=== PATIENT | male | born 1975 | race Caucasian/White ===

== ENCOUNTER 2019-08-20 11:22 | Inpatient (IN) | payer BC, OTHER ==
[~2019-08-20] VITALS: Ht 185.4 cm; Wt 107.0 kg
[2019-08-20 11:31] VITALS: BP 139/88
[2019-08-20 12:10] LABS: ANION GAP 11 mmol/L (7-16); BUN 20 mg/dL (7-18); CALCIUM 8.4 mg/dL (8.5-10.1); CHLORIDE 106 mmol/L (98-107); CO2 22 mmol/L (21-32); CREATININE 1.2 mg/dL (0.7-1.3); GLUCOSE 103 mg/dL (74-106); SODIUM 139 mmol/L (136-145)
[2019-08-20 12:11] LABS: ABSOLUTE NEUTROPHILS 7.1 thou/uL (1.4-8.2); BASOPHILS 0.5 % (0.0-2.0); EOSINOPHILS 0.2 % (0.0-3.0); HEMOGLOBIN 15.4 gm/dL (14.0-18.0); MCH 29.1 pg (26.0-34.0); MCHC 33.4 g/dL (28.0-37.0); MCV 87.1 fL (80.0-100.0); MONOCYTES 5.8 % (1.0-8.0); POLYS 76.5 % (36.0-66.0); RBC 5.28 mil/uL (4.50-6.00); RDW 14.7 % (10.5-14.5); WBC 9.3 thou/uL (4.0-11.0)
[2019-08-20 12:21] LABS: ALBUMIN 3.7 g/dL (3.4-5.0); DIRECT BILIRUBIN 0.5 mg/dL (<0.1-0.2); SGOT 60 U/L (15-37); SGPT 110 U/L (30-65); TOTAL BILIRUBIN 1.6 mg/dL (<0.1-1.0); TROPONIN-I <0.06 ng/mL (<0.06)
[2019-08-20 12:42] LABS: PLATELET COUNT 203 thou/uL (150-400); PLATELET ESTIMATE NORMAL
[2019-08-20 12:45] LABS: URINE BLOOD TRACE (Negative); URINE CLARITY CLEAR; URINE COLOR YELLOW; URINE GLUCOSE-RANDOM* NEGATIVE (Negative); URINE KETONES NEGATIVE (Negative); URINE LEUKOCYTES-REFLEX NEGATIVE (Negative); URINE NITRITE-REFLEX NEGATIVE (Negative); URINE PROTEIN (DIPSTICK) 1+ (Negative); URINE SPECIFIC GRAVITY >= 1.030 (1.005-1.035); URINE UROBILINOGEN 0.2 E.U./dl (0.2-1.0)
[2019-08-20 12:49] LABS: ICTOTEST (BILI CONFIRMATORY) Negative (Negative); URINE BILIRUBIN NEGATIVE (Negative)
[2019-08-20 13:29] LABS: BACTERIA-REFLEX 1-9 Few /HPF (None Seen); CASTS None Seen /LPF (None Seen); CRYSTALS None Seen /LPF (None Seen); SQUAMOUS 0-3 Few /LPF (0-3); URINE RBC 0-2 Rare /HPF (0-2); URINE WBC-REFLEX None Seen /HPF (0-5)
[2019-08-20 14:48] VITALS: BP 114/79
--- NOTE | 2019-08-20 16:20 | NUR ---
Dietary called to order night meal tray for patient.
[2019-08-20 16:23] VITALS: BP 112/76
--- NOTE | 2019-08-20 17:30 | NUR ---
Patient provided with meal tray at this time
[2019-08-20 21:31] VITALS: BP 110/83
[2019-08-20 22:11] VITALS: BP 124/87
[2019-08-21 00:15] VITALS: BP 105/75
[2019-08-21 04:40] VITALS: BP 118/87
--- NOTE | 2019-08-21 07:36 | NUR ---
PT WAS PLEASANT THROUGHOUT THE SHIFT, VERY COOPERATIVE AND INVOLVED IN CARE. PT HAD NO PRIOR MEDICAL HISTORY OR MEDICATION HISTORY. DR SOLITARIO WAS REACHED OUT VIA PHONE ANSWERING SERVICE TO ADD MEDICATIONS ONBOARD. PT STATED THAT SINCE ADMISSION PT HAS BEEN HAVING LESS SOA. WEIGHT HAS BEEN TAKEN, PT HAD LOOSE STOOL COUPLE TIMES THIS SHIFT. PT IS UP AD AVRIL, COMFORTABLE. HOB WAS ELEVATED. FLUID RESTRICTION MAINTAINED. PT IS FULLY COMPREHENDABLE AND IS INVOLVED WITH THE COURSE OF CARE.
[2019-08-21 07:39] LABS: ANION GAP 11 mmol/L (7-16); BUN 15 mg/dL (7-18); CALCIUM 8.4 mg/dL (8.5-10.1); CHLORIDE 106 mmol/L (98-107); CHOLESTEROL 104 mg/dL (<200); CO2 23 mmol/L (21-32); CREATININE 1.3 mg/dL (0.7-1.3); GLUCOSE 92 mg/dL (74-106); HDL CHOLESTEROL 31 mg/dL (>40); LDL CHOLESTEROL 57 mg/dL (<100); POTASSIUM 3.8 mmol/L (3.5-5.1); SODIUM 140 mmol/L (136-145); TC:HDL 3.4 Ratio (Not establshd); TRIGLYCERIDE 83 mg/dL (<150); VLDL 17 mg/dL (<40)
--- NOTE | 2019-08-21 08:05 | EKG ---
[facility] [address] [place] [address] ELECTROCARDIOGRAM REPORT Name: KRISTOFER SUAREZ Room #: 356-P ADM IN M.R.#: [id number] Admission: 08/20/19 Attend Phys: Ernesto Baez MD Discharge: Date of : 79 Report #: [id number] THIS REPORT FOR: cc: FAM - Family physician unknown FAM - Family physician unknown Juan Hills MD [facility] ~ THIS REPORT FOR: //name// [facility] ED Test Date: 2019-08-20 Test Time: 15:11:53 Pat Name: KRISTOFER SUAREZ Department: Room: [facility] Gender: M Admissions Clerk: andrés : 1975 Requested By: Sissy Gutierrez Order Number: [id number] MD: Juan Hills Measurements Intervals [place] Rate: 109 P: 66 IN: 181 QRS: -21 QRSD: 117 T: 57 QT: 356 QTc: 480 Interpretive Statements Sinus tachycardia Nonspecific T wave abnormality Nonspecific intraventricular conduction delay Poor R wave progression No previous ECG available for comparison Electronically Signed On 08-21-2019 8:03:16 CDT by Juan Hills [email or web address] <ELECTRONICALLY SIGNED> By: Juan Hills MD, FACC 08/21/19 0803 151 10 Juan Hills MD, [facility] /EPI
--- NOTE | 2019-08-21 14:17 | NUR ---
Two negative tests.DC enhanced precautions.
--- NOTE | 2019-08-21 15:31 | 2DMMODE ---
[facility] [address] [place] [address] 2 D/M-MODE ECHOCARDIOGRAM Name: KRISTOFER SUAREZ Room #: 356-P ADM IN M.R.#: [id number] Admission: 08/20/19 Attend Phys: Ernesto Baez MD Discharge: Date of : 79 Report #: [id number] THIS REPORT FOR: cc: FAM - Family physician unknown FAM - Family physician unknown Romario Ashley MD ~ APPROVED REPORT Study performed: 08/21/2019 14:42:29 EXAM: Comprehensive 2D, Doppler, and color-flow Echocardiogram Patient Location: Bedside Room #: 356 Status: routine BSA: 2.39 HR: 106 bpm BP: 118/87 mmHg Rhythm: Tachycardia Other Information Study Quality: Excellent Indications Dyspnea, cough, elevated BNP, new onset CHF. 2D Dimensions RVDd: 38.10 mm IVSd: 7.33 (7-11mm) LVOT Diam: 22.76 (18-24mm) LVDd: 64.64 mm PWd: 8.46 (7-11mm) Ascending Ao: 31.59 (22-36mm) LVDs: 58.85 (25-40mm) Aortic Root: 34.79 mm Volumes Left Atrial Volume (Systole) Single Plane 4CH: 130.63 mL Single Plane 2CH: 134.09 mL LA ESV Index: 60.00 mL/m2 Aortic Valve AoV Peak Cullen.: 0.69 m/s AO Peak Gr.: 1.90 mmHg LVOT Max P.15 mmHg LVOT Max V: 0.54 m/s MIYA Vmax: 3.17 cm2 [facility] [address] [place] [address] 2 D/M-MODE ECHOCARDIOGRAM Name: KRISTOFER SUAREZ Room #: 356-P ADM IN M.R.#: [id number] Admission: 08/20/19 Attend Phys: Ernesto Baez, Discharge: Date of : 79 Report #: [id number] Mitral Valve MV Decel. Time: 90.55 ms MV E Max Cullen.: 1.07 m/s Pulmonary Valve PV Peak Cullen.: 0.61 m/s PV Peak Gr.: 1.47 mmHg Tricuspid Valve TR Peak Cullen.: 2.98 m/s RAP Estimate: 15.00 mmHg TR Peak Gr.: 35.41 mmHg PA Pressure: 50.00 mmHg Left Ventricle Left ventricle is moderately dilated. Severe global hypokinesis There is normal left ventricular wall thickness. Left ventricular systolic function is severely decreased. LVEF is 15-20%. This study is not technically sufficient to allow evaluation of the LV diastolic function. Right Ventricle The right ventricle is normal size. Right ventricle is hypokinetic. Atria Left atrium is severely dilated. Right atrium is mildly dilated. Aortic Valve The aortic valve is normal in structure. No aortic regurgitation is present. There is no aortic valvular stenosis. Mitral Valve The mitral valve is normal in structure. Moderate to severe mitral regurgitation Tricuspid Valve The tricuspid valve is normal in structure. Mild to moderate tricuspid regurgitation. Estimated PAP is 50mmHg. Pulmonic Valve The pulmonary valve is normal in structure. Mild pulmonic regurgitation. Great Vessels The aortic root is normal in size. The ascending aorta is normal in size. IVC is dilated and collapses <50% with [facility] [address] [place] [address] 2 D/M-MODE ECHOCARDIOGRAM Name: KRISTOFER SUAREZ Room #: 356-P ADM IN M.R.#: [id number] Admission: 08/20/19 Attend Phys: Ernesto Baez, Discharge: Date of : 79 Report #: [id number] inspiration. Pericardium There is no pericardial effusion. <Conclusion> Left ventricle is moderately dilated. LVEF is 15-20%. Severe global hypokinesis The right ventricle is normal size. Right ventricle is hypokinetic. Left atrium is severely dilated. Right atrium is mildly dilated. The aortic valve is normal in structure. The mitral valve is normal in structure. Moderate to severe mitral regurgitation The tricuspid valve is normal in structure. Mild to moderate tricuspid regurgitation. Estimated PAP is 50mmHg. The pulmonary valve is normal in structure. Mild pulmonic regurgitation. There is no pericardial effusion. <ELECTRONICALLY SIGNED> By: Romario Ashley MD 08/21/19 1529 1529 1529 Romario Ashley MD /INF
[2019-08-21 16:05] VITALS: BP 112/85
--- NOTE | 2019-08-21 17:00 | NUR ---
PATIENT WILL BE TRANSFERING TO ROOM 218 AT THIS TIME. HE IS ALERT ORIENTED X4. AMBUALTES WITH NO DIFFICULTY. PLEASANT WITH CARES. WILL CONT WITH PLAN OF CARE.
[2019-08-21 18:45] VITALS: BP 112/79
[2019-08-22] VITALS (13 sets, daily range): BP systolic 96–111; BP diastolic 66–78
--- NOTE | 2019-08-22 03:08 | NUR ---
PT TRANSFER FROM 3W YESTERDAY ALERT AND ORIENTED X4. VITALS STABLE. SUNUS TACHY ON THE MONITOR LOW 110s. PT HAD 8 RUN OF VTACH OVERNIGHT. DENIES CHEST PALPITATIONS, NAUSEA OR SOB. PT HAS BEEN NPO SINCE 0000 FOR CARDIAC CATH THIS AM. NO OTHER CONCERNS. VOIDING BY THE URINAL, INDEPENDENT IN HIS ROOM. WILL CONTINUE WITH POC.
[2019-08-22] MEDS ORDERED: FUROSEMIDE20 MG/2 ML PO (07:47)
[2019-08-22] MEDS ORDERED: CARVEDILOL3.125 MG PO (07:47)
[2019-08-22] MEDS ORDERED: LISINOPRIL2.5 MG PO (07:47)
[2019-08-22] MEDS ORDERED: K-DUR 20 MEQ T20 MEQ PO (07:47)
--- NOTE | 2019-08-22 10:03 | NUR ---
PT. RESTING, AWOKE AND DISCUSSED UPCOMING PROCEDURE. "EXCITED TO GET THIS GOING".. DENIES ANY CHEST PAIN AT PRESENT, NOR ANY SOB. NPO AT THIS TIME FOR PROCEDURE STILL. IV SITE PATENT AND FLUSHES EASILY.
[2019-08-23 00:59] VITALS: BP 105/68
--- NOTE | 2019-08-23 04:14 | NUR ---
ASSUMED CARE 1900. PT ALERT AND ORIENTED. OFF BEDREST S/P HEART CATH YESTERDAY. RIGHT GROIN C/D/I. PT DENIES NAUSEA, CHEST PAIN OR SOB. PT STATES FEELING MUCH BETTER, WITH EDEMA HAVING GONE DOWN. PT HAD A 20 BEAT OF VTACH. RECHECKED VITALS STABLE, DENIES SOB, DIZZINESS OR PALPITATIONS. PT REPORTS HE WAS ASLEEP AND DID NOT FEEL ANYTHING. PT OTHERWISE IS SR ON THE MONITOR WITH FREQUENT PVCs. NO OTHER CONCERNS AT THIS TIMES. PT ANTICIPATED TO DC THIS AM. WILL CONTINUE TO FOLLOW POC.
[2019-08-23 04:45] VITALS: BP 99/62
[2019-08-23] MEDS ORDERED: LISINOPRIL2.5 MG PO (07:30)
[2019-08-23] MEDS ORDERED: LASIX 20 MG TAB20 MG PO (07:30)
[2019-08-23] MEDS ORDERED: K-DUR 20 MEQ T20 MEQ PO (07:30)
[2019-08-23 08:07] VITALS: BP 113/75
[2019-08-23 09:37] VITALS: BP 113/75
--- NOTE | 2019-08-23 10:27 | CATHLAB ---
[facility] [address] [place] [address] INVASIVE PROCEDURE REPORT Name: KRISTOFER SUAREZ Room #: 218-P ADM IN M.R.#: [id number] Admission: 08/20/19 Attend Phys: Ernesto Baez MD Discharge: Date of : 79 Report #: [id number] THIS REPORT FOR: cc: FAM - Family physician unknown FAM - Family physician unknown Romario Ashley MD ~ APPROVED REPORT Study performed: 08/22/2019 15:32:10 Patient Details Patient Status: In-Patient Room #: The patient is a 43 year-old male Event Personnel Romario Ashley Supplier Development Manager, Licha Malone RN RN, Carlita Gandara RTR Jeyson Alexandra Sherra RTR Monitor Procedures Performed Art Access - R femoral artery* Left Heart Cath w/or w/o Coronaries [id number] [facility] [address] Initial Mod Sed Same Phys/QHP Gr 838587 22689 Mod Sed Same Phys/QHP Ea 080852 Hemostasis with Manual pressure, supervision of conscious sedation Indication Cardiomyopathy, Heart failure with reduced ejection fraction new onset Procedure Narrative The Right Groin^ was infiltrated with 1% Lidocaine subcutaneous anesthesia. A PINNACLE 4FR Sheath #[id number] sheath was inserted into the RFA^. Coronary angiography was performed using coronary diagnostic catheters. The right coronary system was accessed and visualized with a JR4 catheter. The left coronary system was accessed and visualized with a JL4 catheter. The left ventricle was accessed and visualized with a PIGTAIL catheter. The patient tolerated the procedure well and there were no complications associated with the procedure. There was no hematoma. Intraoperative Conscious Sedation Sedation start time: 1554 Case end Time: 1627 Versed 2 mg [facility] [address] [place] [address] INVASIVE PROCEDURE REPORT Name: KRISTOFER SUAREZ Room #: 218-P [facility] IN ..#: [id number] Admission: 08/20/19 Attend Phys: Ernesto Baez, Discharge: Date of : 79 Report #: [id number] Fluoro Time: 2.59 minutes Dose: DAP 4443.10 cGycm2 661 mGy Contrast Type and Amount: Omnipaque 65 ml Coronary Angiography The patient's coronary anatomy is co- dominant. Diagnostic Cath Left Main Large-caliber vessel normal origin bifurcates left anterior descending left circumflex coronary arteries and is free of high-grade disease LAD Moderate to large caliber type II vessel which courses in the anterior interventricular sulcus giving rise to several diagonal branches without significant obstructive lesions. The vessel is free of significant luminal irregularities as it tapers towards the apex and terminates as a small bifurcating vessel Diagonal 1 Moderate caliber vessel without significant high-grade lesions or luminal irregularities as it courses in the anterolateral aspect of the left ventricle Circumflex Moderate to large caliber vessel which gives rise to 2 early marginal branches as it courses in the AV groove posteriorly terminating is small posterior wall branches which one appears to have septal vessels originating from it. No significant luminal irregularities or obstructive lesions are noted OM1 Small caliber vessel without significant high-grade lesions noted OM2 Moderate caliber vessel coursing on the lateral aspect of the left ventricle free of high-grade disease OM3 Small insignificant caliber vessel without high-grade lesions L PDA Small rapidly tapering vessel without significant irregularities or stenosis noted Right Coronary Large-caliber vessel normal origin courses in the AV groove posteriorly to the crux of the heart. There is no significant luminal irregularities or obstructive lesions noted. It then gives rise to a small posterior descending artery and terminates as a small insignificant vessel beyond the origin of the PDA. R PDA Small caliber vessel no significant high-grade lesions noted Left Ventriculography Left Ventriculography was not performed. Hemodynamics The aortic pressure is 102/72 mmHg with a mean of 75 mmHg. The left ventricular pressure is 96/17 mmHg with a mean of mmHg. The left [facility] [address] [place] [address] INVASIVE PROCEDURE REPORT Name: KRISTOFER SUAREZ Room #: 218-P [facility] IN M.R.#: [id number] Admission: 08/20/19 Attend Phys: Ernesto Baez, Discharge: Date of : 79 Report #: [id number] ventricular end diastolic pressure is 26 mmHg. Conclusion 1. Normal coronary arteries 2. Abnormal hemodynamics elevated left ventricular end-diastolic pressures Recommendations In view of significant ventricular dysfunction on echocardiogram and normal coronary arteries dilated cardiomyopathy diagnosis will optimize guideline directed medical therapy. <ELECTRONICALLY SIGNED> By: Romario Ashley MD 08/23/19 1025 1025 1025 Romario Ashley MD /INF
--- NOTE | 2019-08-23 11:09 | NUR ---
ASSUMED CARE AT SHIFT CHANGE, ALERT AND ORIENTED X4. DENIES ANY CP OR DISCOMFORT. LIFEVEST SET UP IS DONE, DISCHARGE, AND MEDICATION INSTRUCTION GIVEN TO PATIENT AND PATIENT DISCHARGED HOME.
== END 2019-08-23 11:11 | disposition home or self-care (01) | DRG 287 ==
LOC: ER 11:22 → EROBS 16:22 → 2N 16:22 → 3W 16:22 → 2N 08-21 18:30
PROVIDERS: Emergency Medicine Emergency Medical Services; Nurse Practitioner; ADMIT Family Medicine
PROC: B2111ZZ Fluoroscopy of Multiple Coronary Arteries using Low Osmolar Contrast (ICD-10-PCS; principal; 2019-08-22)
PROC: 4A023N7 Measurement of Cardiac Sampling and Pressure, Left Heart, Percutaneous Approach (ICD-10-PCS; 2019-08-22)
DX: I50.21 Acute systolic (congestive) heart failure (principal); I42.9 Cardiomyopathy, unspecified; J06.9 Acute upper respiratory infection, unspecified; E78.5 Hyperlipidemia, unspecified; Z20.828 Contact with and (suspected) exposure to other viral communicable diseases
CPT/HCPCS: 10081; 10879

== ENCOUNTER 2019-09-26 15:58 | Inpatient (IN) | payer BC, OTHER ==
[~2019-09-26] VITALS: Ht 185.4 cm; Wt 106.6 kg
[2019-09-26] VITALS (12 sets, daily range): BP systolic 67–102; BP diastolic 36–72
[~2019-09-26 15:58] MED LIST: CARVEDILOL3.125 MG PO; FUROSEMIDE20 MG/2 ML PO; K-DUR 20 MEQ T20 MEQ PO; LASIX 20 MG TAB20 MG PO; LISINOPRIL2.5 MG PO
--- NOTE | 2019-09-26 17:50 | NUR ---
1545: PT DIRECT ADMIT FROM OFFICE. TOOK AN HOUR TO GET ADMITTED INTO COMPUTER. IV STARTED, STARTED ON CARDIZEM GTT. SIG OTHER WENT HOME. 1750: PT STATES HE FEELS AWFUL. RESTLESS IN BED, DIFFICULTY BREATHING. EKG ORDERED. STOP CARDIZEM GTT. PAGED DR HAMPTON THROUGH OFFICE.
[2019-09-26 19:37] LABS: HEMATOCRIT 44.6 % (42.0-52.0); HEMOGLOBIN 14.9 gm/dL (14.0-18.0); MCH 28.8 pg (26.0-34.0); MCHC 33.3 g/dL (28.0-37.0); MCV 86.6 fL (80.0-100.0); RBC 5.16 mil/uL (4.50-6.00); RDW 14.9 % (10.5-14.5)
[2019-09-26 19:43] LABS: CALCIUM 8.7 mg/dL (8.5-10.1)
[2019-09-27] VITALS (64 sets, daily range): BP systolic 69–204; BP diastolic 31–150
--- NOTE | 2019-09-27 07:42 | EKG ---
[facility] [address] [address] ELECTROCARDIOGRAM REPORT Name: KRISTOFER SUAREZ Room #: 245-P ADM IN M.R.#: [id number] Admission: 09/26/19 Attend Phys: Romario Ashley Discharge: Date of : 79 Report #: [id number] THIS REPORT FOR: cc: FAM - Family physician unknown FAM - Family physician unknown Juan Hills MD [facility] THIS REPORT FOR: //name// [facility] Test Date: 2019-09-26 Test Time: 18:28:12 Pat Name: KRISTOFER SUAREZ Department: Room: [facility] Gender: M Indoor Landscaper/Gardener: Radha [place] : 1975 Requested By: Romario Ashley Order Number: [id number] MD: Juan Hills Measurements Intervals [place] Rate: 84 P: NC: QRS: -43 QRSD: 117 T: 89 QT: 407 QTc: 482 Interpretive Statements Atrial fibrillation Nonspecific IVCD with LAD Poor R wave progression Nonspecific T abnormalities Compared to ECG 08/20/2019 15:11:53 Atrial fibrillation is new Electronically Signed On 09-27-2019 7:37:54 CDT by Juan Hills [email or web address] <ELECTRONICALLY SIGNED> By: Juan Hills MD, [facility] 09/27/19 0737 1828 182 Juan Hills MD, [facility] /EPI
[2019-09-27 10:37] LABS: CALCIUM 8.5 mg/dL (8.5-10.1); CREATININE 1.4 mg/dL (0.7-1.3)
--- NOTE | 2019-09-27 13:59 | NUR ---
INITIAL ASSESSMENT: SW reviewed chart and spoke with nursing. Pt was admitted from home due to A-fib with RVR. Pt currently in ICU. Pt to have STEVIE/cardioversion tomorrow. SW spoke with pt via phone. Introduced role of SW. Pt is alert/orientated x 4. Pt reports he lives at home with his family. Prior to admission, pt was independent with ADLs. No use of DME. No hx of services or post-acute placement. Pt's PCP is Dr. Baez. Plan is for pt to discharge home when medically stable. No discharge needs identified at this time, but is available to assist should needs arise.
--- NOTE | 2019-09-27 15:50 | NUR ---
nauseated, had emesis of peaches, dizzy, short of air. Dr Ashley called at office. Call returned, updated. see mars for zofran administration.
--- NOTE | 2019-09-27 16:15 | NUR ---
dopamine 2 mcg/kg/min, dobutamine 3 mcg/kg/min. pt became purple in face, increased coughing, short of breath, restless, bp- elevated 150/120, bp-167/140 after cuff changed and replaced. Dr. Ashley called again at office. call returned, updated. requested parameters for dopamine titration.
--- NOTE | 2019-09-27 17:00 | NUR ---
DISCUSSED WITH PT AND , PLAN FOR STEVIE AND CARDIOVERSION. VERBALIZED UNDERSTANDING. PROVIDING SUPPORT. PT TRYING TO REMAIN CALM. REMAINS AWAKE AND RESTING QUIETLY.
[2019-09-28] VITALS (56 sets, daily range): BP systolic 55–132; BP diastolic 22–98
[2019-09-28 05:51] LABS: CALCIUM 8.6 mg/dL (8.5-10.1); CREATININE 1.8 mg/dL (0.7-1.3); POTASSIUM 4.5 mmol/L (3.5-5.1)
--- NOTE | 2019-09-28 09:27 | NUR ---
PRE PROCEDURE TIME OUT AT 924 1MCG OF VERSED GIVEN AT 926 25 OF FENTANYL GIVEN 926 1 MCG OF VERSED GIVEN AT 927 25 OF FENTANYL GIVEN AT 927 DR. [place], CV NURSE, FISH HATCHERY MAN AND WARDROBE SPECIALTY WORKER AT BEDSIDE AT THIS TIME. 1MCG OF VERSED GIVEN AT 928 BY ASSISTANT PROFESSOR SCULPTURE PATIENT HR 136, SPO2 96% AND BP 1MCG OF VERSED GIVNE AT 929 25 OF FENTANYL GIVERN AT 929 PROCEDURE COMPLTE AT 0945. PATIENT HAVING AGONAL BREATHING, RN STERNAL RUBBING PATIENT, PATIENT AWAKE, BUT DROWSY. AT 951, PATIENT'S AT BEDSIDE.
--- NOTE | 2019-09-28 12:38 | TEE ---
[address] [address] TRANSESOPHAGEAL ECHOCARDIOGRAM Name: KRISTOFER SUAREZ Room #: 245-P ADM IN M.R.#: [id number] Admission: 09/26/19 Attend Phys: Romario Ashley Discharge: Date of : 79 Report #: [id number] THIS REPORT FOR: cc: FAM - Family physician unknown FAM - Family physician unknown Juan Hills MD [facility] ~ APPROVED REPORT Study performed: 09/28/2019 08:56:08 EXAM: Comprehensive 2D, Doppler, and color-flow Echocardiogram Patient Location: ICU Room #: [facility] Status: routine BSA: 2.28 HR: 135 bpm BP: 103/71 mmHg Rhythm: Atrial Fibrillation Other Information Study Quality: Excellent Indications Atrial Fibrillation Cardiomyopathy Procedure After obtaining informed consent, patient underwent transesophageal echo in the Bedside. Type of Sedation : Conscious Sedation Sedation was administered by Nurse. Sedation was achieved intravenously with: Versed (4 mg) Fentanyl (75 mcg) Transesophageal probe was inserted and advanced into esophagus without difficulty by Juan Hills MD. The STEVIE was performed without complications. Throughout the procedure, the blood pressure, pulse oximetry, cardiac rhythm, and rate were monitored. The patient tolerated the procedure without adverse effects. Recovery from conscious sedation was uneventful and vital signs were stable. Left Ventricle [address] [address] TRANSESOPHAGEAL ECHOCARDIOGRAM Name: KRISTOFER SUAREZ Room #: 245-P ADM IN M.R.#: [id number] Admission: 09/26/19 Attend Phys: Romario Fajardo Discharge: Date of : 79 Report #: [id number] Left ventricle is dilated. There is severe global hypokinesis of the left ventricle. There is normal left ventricular wall thickness. Left ventricular ejection fraction is severely decreased. LVEF is <15%. Right Ventricle Right ventricle is dilated. Right ventricle is hypokinetic. Atria Left atrium is severely dilated. Thrombus is present in the left atrial appendage. Thrombus is present in the right atrium. 1.4 x 1.7 cm oval mass in the right atrium, probably thrombus Aortic Valve The aortic valve is normal in structure. No aortic regurgitation is present. There is no aortic valvular stenosis. Mitral Valve The mitral valve is normal in structure. Moderate mitral regurgitation. No evidence of mitral valve stenosis. Tricuspid Valve The tricuspid valve is normal in structure. Mild tricuspid regurgitation. Pulmonic Valve The pulmonary valve is normal in structure. There is no pulmonic valvular regurgitation. Trace pulmonic regurgitation. Great Vessels The aortic root is normal in size. The ascending aorta is normal in size. IVC is normal in size and collapses >50% with inspiration. Pericardium There is no pericardial effusion. Critical Notification Critical Value: Yes <Conclusion> Left ventricular ejection fraction is severely decreased. There is severe global hypokinesis of the left ventricle. LVEF is <15%. Left atrium is severely dilated. Thrombus is present in the left [facility] [address] [place] [address] TRANSESOPHAGEAL ECHOCARDIOGRAM Name: KRISTOFER SUAREZ Room #: 245-P ADM IN M.R.#: [id number] Admission: 09/26/19 Attend Phys: Romario Fajardo Discharge: Date of : 79 Report #: [id number] atrial appendage. Thrombus is present in the right atrium. 1.4 x 1.7 cm oval mass in the right atrium, probably thrombus The aortic valve is normal in structure. No aortic regurgitation or stenosis. The mitral valve is normal in structure. Moderate mitral regurgitation. There is no pericardial effusion. <ELECTRONICALLY SIGNED> By: Juan Hills MD, FACC 09/28/19 1237 1237 1237 Juan Hills MD, FACC /INF
--- NOTE | 2019-09-28 12:48 | NUR ---
SOPHIA reviewed chart and spoke with nursing. Pt had STEVIE earlier today. Pt with right and left atrial appendage thrombi. Request for transfer to [facility]. Cardiology contacted [facility]. SOPHIA spoke with Kristopher in the transfer center. Faxed clinical info and demographic info for review. SOPHIA requested radiology images to be uploaded to the [place] to [facility]. Chart copy requested. Awaiting call back from [facility] regarding pt's acceptance and bed assignment. SOPHIA updated pt's nurse. SOPHIA is following to assist as needed with discharge planning.
== END 2019-09-28 16:04 | disposition short-term general hospital (02) | DRG 310 ==
LOC: ICU 15:58
PROVIDERS: Nurse Practitioner; ADMIT Internal Medicine; ATTEND Internal Medicine
PROC: B24BZZ4 Ultrasonography of Heart with Aorta, Transesophageal (ICD-10-PCS; principal; 2019-09-28)
DX: I48.0 Paroxysmal atrial fibrillation (principal); I42.0 Dilated cardiomyopathy; I50.9 Heart failure, unspecified; Z79.899 Other long term (current) drug therapy
CPT/HCPCS: 10204